=== PATIENT | male | born 1955 | race Caucasian/White ===

== ENCOUNTER 2017-05-17 12:02 | Day surgery (SDC) | payer MEDICARE, MEDICAID ==
[~2017-05-17] VITALS: Ht 167.6 cm; Wt 93.0 kg
[~2017-05-17 12:02] MED LIST: CEFAZOLIN SOD 1 GM/ ISO 50 ML PREMIX IV ONE
[2017-05-17] MEDS ORDERED: NS IRRIG SOLN 1000 ML IR ONE (14:30)
[2017-05-17] MEDS ORDERED: MIDAZOLAM HCL 5 MG/5 ML VIAL IVP ONE (14:30)
[2017-05-17] MEDS ORDERED: SEVOFLURANE 15 MIN GAS INH ONE (14:30)
[2017-05-17] MEDS ORDERED: KETOROLAC TROMETHAMINE 30 MG VIAL IVP ONE (14:30)
[2017-05-17] MEDS ORDERED: PROPOFOL 200MG/ 20ML VIAL (DIPRIVAN) IV ONE (14:30)
[2017-05-17] MEDS ORDERED: fentaNYL CITRATE/PF 100 MCG/2 ML AMP IVP ONE (14:30)
[2017-05-17] MEDS ORDERED: ONDANSETRON HCL 4 MG/2 ML VIAL IVP ONE (14:30)
[2017-05-17] MEDS ORDERED: BUPIVACAINE /PF 0.25% 30 ML VIAL INJ ONE (14:30)
[2017-05-17] MEDS ORDERED: LR 1,000 ML IV SCH (14:55)
[2017-05-17] MEDS ORDERED: MEPERIDINE HCL/PF 25 MG/ML DISP.SYRIN IVP PRN ×2 (15:00)
[2017-05-17] MEDS ORDERED: HYDROmorphone 2 MG/ML VIAL IVP PRN ×2 (15:00)
[2017-05-17] MEDS ORDERED: ONDANSETRON HCL 4 MG/2 ML VIAL IVP PRN (15:00)
[2017-05-17] MEDS ORDERED: HYDROmorphone 1 MG INJ. 1 MG/ML AMPUL IVP PRN ×2 (15:00→15:30)
[2017-05-17] MEDS ORDERED: KETOROLAC TROMETHAMINE 30 MG VIAL IVP PRN (15:00)
[2017-05-17] MEDS ORDERED: D5/0.45 NS 1,000 ML IV SCH (15:18)
[2017-05-17] MEDS ORDERED: HYDROcodone/ACETAMIN 5-325 MG TAB (NORCO/ VICODIN) PO PRN ×2 (15:30)
[2017-05-17 18:28] VITALS: BP_SYST 105
== END 2017-05-17 17:40 | disposition home or self-care (01) ==
LOC: SDS 12:02 → SMU 12:03 → SDS 17:40
PROVIDERS: ATTEND Colon & Rectal Surgery
DX: K60.2 Anal fissure, unspecified (principal)
CPT/HCPCS: 46200; 88304; J0690; J1885; J2250; J2405; J2704; J3010; J3490; J7120